=== PATIENT | male | born 1965 | race Caucasian/White ===

== ENCOUNTER 2022-10-28 09:19 | Day surgery (SDC) | payer OTHER ==
[~2022-10-28] VITALS: Ht 162.6 cm; Wt 76.2 kg
[2022-10-28] MEDS ORDERED: LIDOCAINE 2% 100 MG/5 ML UJET TP ONE (10:07)
== END 2022-10-28 11:10 | disposition home or self-care (01) ==
LOC: MMU 09:19 → MDS 09:19
PROVIDERS: ATTEND Internal Medicine Gastroenterology
DX: K62.9 Disease of anus and rectum, unspecified (principal); E78.5 Hyperlipidemia, unspecified; Z86.010 Personal history of colon polyps; Z20.822 Contact with and (suspected) exposure to COVID-19
CPT/HCPCS: 45330; 45350